=== PATIENT | male | born 1955 | race Caucasian/White ===

== ENCOUNTER 2018-05-25 08:10 | Day surgery (SDC) | payer OTHER ==
[~2018-05-25] VITALS: Ht 167.6 cm; Wt 87.3 kg
[2018-05-25] MEDS ORDERED: DIOVAN/HCT 12.51 TAB PO (08:52)
[2018-05-25] MEDS ORDERED: PRAVACHOL80 MG PO (08:53)
[2018-05-25 08:54] VITALS: BP 132/82; PULSE 56; TEMP 97.7
[2018-05-25 09:55] VITALS: BP 116/58; PULSE 56; TEMP 98
--- NOTE | 2018-05-25 09:55 | NUR ---
0955-Assisted patient with ambulating from cart to chair and he did well. Connected to monitors and vitals remain stable. at bedside with him. Dr. Caldwell spoke with her previously regarding procedure findings. 1000-Patient given diet pepsi and banana muffins x2 per request. Denies having any pain or nausea. 1010-Tolerated eating and drinking without any reports of nausea. Vitals remain stable. Requesting 2 more muffins; will provide shortly. 1025-Patient sitting up and doing well. Vitals remain stable. Resting without any complaints or concerns. 1030-IV site dc'd from his right hand, tip of catheter intact. Gauze and tape applied to site. 1035-Discussed discharge instructions and diverticulosis handouts with patient and his . Discussed diet instructions and both verbalized understanding. No further questions or concerns voiced at this time. Patient is getting dressed and ready for discharge home. 1040-Patient is dressed and doing well. Denies having any pain or nausea. Assisted with ambulating to private car with his and he did well. Discharge instructions and belongings sent with him.
[2018-05-25 10:10] VITALS: BP 107/70; PULSE 55
[2018-05-25 10:25] VITALS: BP 104/73; PULSE 54
== END 2018-05-25 10:40 | disposition home or self-care (01) ==
LOC: SDCO 08:10
DX: R19.5 Other fecal abnormalities (principal); K57.30 Diverticulosis of large intestine without perforation or abscess without bleeding; Z80.9 Family history of malignant neoplasm, unspecified; I10 Essential (primary) hypertension; E78.00 Pure hypercholesterolemia, unspecified
CPT/HCPCS: J2250; J2405; J3010; J7030